=== PATIENT | male | born 1940 | race Caucasian/White ===

== ENCOUNTER 2024-03-06 08:49 | Outpatient (CLI) | payer OTHER, SELFPAY ==
--- NOTE | ~2024-03-06 | XR_ITS ---
EXAMINATION: XR shoulder LT min 2V DATE: 03/06/2024 09:13 INDICATION: Left shoulder pain and limited range of motion TECHNIQUE: AP internally and externally rotated, AP oblique externally rotated and transscapular Y vi ews of the left shoulder were obtained. COMPARISON: None FINDINGS: Normal alignment. No fracture.Mild glenohumeral osteoarthritis. The acromioclavicular joint is subop timally profiled but suggests at least moderate osteoarthritis. Mild upper thoracic dextrocurvature w ith moderate to severe facet osteoarthritis in the lower cervical and upper thoracic spine. Soft tiss ues are unremarkable. Calcified nodule left upper lung zone consistent with old granulomatous disease . IMPRESSION: 1. Mild left glenohumeral osteoarthritis. 2. Suboptimally profiled left acromioclavicular joint but suggesting at least moderate osteoarthritis . 3. Mild upper thoracic dextrocurvature with moderate to severe lower cervical and upper thoracic face t osteoarthritis. Reviewed, dictated and finalized at location B. E [employer]PER[employer] IMPRESSION: 1. Mild left glenohumeral osteoarthritis. 2. Suboptimally profiled left acromioclavicular joint but suggesting at least m oderate osteoarthritis. 3. Mild upper thoracic dextrocurvature with moderate to severe lower cervical a nd upper thoracic facet osteoarthritis.
== END 2024-03-06 08:50 | disposition home or self-care (01) ==
LOC: GOSHIMG 08:50
PROVIDERS: PCP Internal Medicine; Visit Provider Family Medicine
DX: M19.012 Primary osteoarthritis, left shoulder (principal)
CPT/HCPCS: 73030

== ENCOUNTER 2024-08-17 08:58 | Outpatient (CLI) | payer OTHER, SELFPAY ==
[2024-08-17 19:34] LABS: Basophils Absolute Auto 0.1 K/mm3 (0.0-0.1); Eosinophils Absolute Auto 0.5 K/mm3 (0-0.3); Eosinophils Percent Auto 5.7 % (0-4.4); Hematocrit 42.7 % (42.0-52.0); Hemoglobin 14.4 g/dL (14.0-18.0); Immature Granulocyte Absolute 0.09 K/mm3 (0.00-0.031); Immature Granulocyte Percent A 1.1 % (0-0.5); Lymphocytes Absolute Auto 1.09 K/mm3 (0.9-3.2); Lymphocytes Percent Auto 13.1 % (18.3-44.2); Mean Corpuscular HGB Conc 33.7 g/dl (32-36); Mean Corpuscular Hemoglobin 32.4 pg (26-34); Mean Platelet Volume 10.7 fl (7.4-10.4); Monocytes Absolute Auto 1.2 K/mm3 (0.1-0.6); Monocytes Percent Auto 13.8 % (2.6-8.5); Neutrophils Absolute Auto 5.5 K/mm3 (1.3-6.7); Neutrophils Percent Auto 65.3 % (45.5-73.1); Platelet Count Result 300 k/mm3 (150-375); Red Blood Count 4.45 M/mm3 (4.6-6.20); Red Cell Distribution Width 12.7 % (11.5-14.5); White Blood Count 8.4 K/mm3 (4.5-10.0)
[2024-08-17 20:04] LABS: Alanine Aminotransferase 27 U/L (6-50); Albumin Level 4.4 g/dL (3.5-5.1); Alkaline Phosphatase 70 U/L (38-126); Anion Gap 8 mmol/L (4-12); Aspartate Amino Transferase 32 U/L (17-59); Blood Urea Nitrogen 22 mg/dL (9-20); Calcium 8.9 mg/dL (8.4-10.2); Carbon Dioxide 24 mmol/L (22-30); Chloride 104 mmol/L (98-107); Estimated Glomerular Filt Rate > 60; Glucose 99 mg/dL (65-110); Potassium 4.1 mmol/L (3.4-5.0); Sodium 136 mmol/L (137-145)
[2024-08-17 20:27] LABS: Free T3 3.84 pg/mL (2.34-5.61)
[2024-08-17 20:59] LABS: Hemoglobin A1C 5.6 % (<5.7)
[2024-08-17 21:13] LABS: Folic Acid 18.2 ng/mL (2.76->20)
== END 2024-08-17 08:59 | disposition home or self-care (01) ==
LOC: ANHGOSHLAB 08:59
PROVIDERS: PCP Internal Medicine; Visit Provider Internal Medicine
DX: G62.9 Polyneuropathy, unspecified (principal); I10 Essential (primary) hypertension; E61.1 Iron deficiency; R73.9 Hyperglycemia, unspecified
CPT/HCPCS: 36415; 80053; 82607; 82728; 82746; 83036; 84443; 84481; 85025